=== PATIENT | male | born 1975 | race Two or more races ===

== ENCOUNTER 2019-09-08 11:14 | Emergency (ER) | payer MEDICAID ==
[~2019-09-08] VITALS: Ht 177.8 cm; Wt 83.0 kg
--- NOTE | 2019-09-08 11:25 | NUR ---
PT BIB BY DAMIR HAVING PAINFUL AND FREQUENT URINATION FOR 2-3 DAYS. TODAY WAS UNABLE TO URINATE AT ALL. ONLY DRIBBLING. BLADDER SCANNER SHOWS ">999ML". PT IS ACCOMPANIED BY .
[2019-09-08 12:01] LABS: BASOPHILS # (AUTO) 0.02 x10^3/uL (0-0.1); BASOPHILS % (AUTO) 0 % (0-1); EOSINOPHILS # (AUTO) 0.12 x10^3/uL (0-0.4); EOSINOPHILS % (AUTO) 2 % (1-7); LYMPHOCYTES # (AUTO) 1.67 x10^3/uL (1-3.4); LYMPHOCYTES % (AUTO) 24 % (22-44); MD NO; MEAN CORPUSCULAR HEMOGLOBIN 25.3 pg (27.5-34.5); MEAN CORPUSCULAR VOLUME 79.1 fL (81-97); MEAN PLATELET VOLUME 8.9 fL (7.4-10.4); MONOCYTES # (AUTO) 0.65 x10^3/uL (0.2-0.8); MONOCYTES % (AUTO) 9 % (2-9); NEUTROPHILS # (AUTO) 4.61 x10^3/uL (1.8-6.8); NEUTROPHILS % (AUTO) 65 % (42-75); PLATELET COUNT 233 x10^3/uL (130-400); RED BLOOD COUNT 5.71 x10^6/uL (4.38-5.82); RED CELL DISTRIBUTION WIDTH 16.2 % (9.4-14.8)
--- NOTE | 2019-09-08 12:06 | NUR ---
PT REPORTS RELIEF FROM BLADDER PAIN AFTER HATCH. ABOUT 1100 ML VOIDED Addendum: 09/08/19 at 1229 by SHANIA ABOUT 650ML VOIDED*
[2019-09-08 12:07] LABS: ALBUMIN 3.4 g/dL (3.4-5.0); ANION GAP 8 mmol/L (5-15); CALCIUM 8.9 mg/dL (8.5-10.1); CHLORIDE 107 mmol/L (98-107); CREATININE 1.28 mg/dL (0.7-1.3)
[2019-09-08 12:32] VITALS: BP 126/82
[2019-09-08 13:06] LABS: CULTURE INDICATED? YES; MICROSCOPIC AUTO
== END 2019-09-08 13:53 | disposition home or self-care (01) ==
LOC: ED 13:47
DX: R33.9 Retention of urine, unspecified (principal)
CPT/HCPCS: 36415; 51702; 80048; 81001; 82040; 85025; 87086; 87491; 87591; 99284